=== PATIENT | male | born 1935 | race Caucasian/White ===

== ENCOUNTER → 2017-08-02 | Day surgery (SDC) | payer MEDICARE, OTHER ==
[~2017-08-02] VITALS: Ht 171.4 cm; Wt 79.1 kg
[2017-08-02] VITALS (8 sets, daily range): BP systolic 119–148; BP diastolic 73–79; PULSE 53–69; RESP 14–21; O2SAT 94–100
[~2017-08-02] MED LIST: ASPI-973 PO; ATOR20TA PO; CeFAZolin Inj 2 GM in IV Premix 1 EACH IV ONE; Dexamethasone 4 mg/mL Inj IVPUSH PRN; Dexamethasone 4 mg/mL Inj ONE; EPHEDrine Sulfate 50 mg/mL Inj IVPUSH PRN; HYDROmorphone 1 mg/mL Inj IVPUSH PRN; Ketamine 10 mg/mL 20 mL Inj ONE; Lactated Ringer's 1,000 ML IV SCH; Lactated Ringer's 500 ML IV PRN; MULT-1073 PO; MetoCLOpramide 5 mg/mL 2 mL Inj IVPUSH PRN; Ondansetron 2 mg/mL 2 mL Inj IVPUSH PRN; Ondansetron 2 mg/mL 2 mL Inj ONE; Phenylephrine 10,000 mCg/mL Inj IVPUSH PRN; Propofol 10,000 mCg/mL 20 mL Inj ONE; TIMO5DRO27 OP; fentaNYL-PF 50 mCg/mL 2 mL Inj IVPUSH PRN; fentaNYL-PF 50 mCg/mL 2 mL Inj ONE; milk thistle
[2017-08-02] MEDS: Lactated Ringer's 1,000 ML IV SCH ×2 (06:00→07:40)
--- NOTE | 2017-08-02 07:55 | PCM.HPANE ---
Patient Data Surgeon Admitting Provider: Attending Provider:Bela Silva MD Primary Care Physician:Nadege Daly MD Other Provider:[facility] Reason for Visit Gross Hematuria Ht/WT & BMI Height (Feet): 5 Height (Inches): 7.50 Weight (Kilograms): 79.100 Body Mass Index 27.00 Allergies Coded Allergies: No Known Allergies (Unverified , 07/31/17) Past Anesthesia History Anesthesia History: Denies:: Abnormal Airway, Anesthesia Reactions, Difficult Intubation, Fam Anesthesia Reaction, Fam Malignant Hypertherm, Malignant Hyperthermia Diabetes History Hx Diabetes?: No MRSA MRSA: No Medications Hypertension Medication: No Home Meds Incl Beta Saeid: No Reported Medications Timolol (Betimol)5 Ml Drops5 Ml OP DAILY 07/31/17 [milk thistle] No Conflict CheckUnknown Dose DAILY 07/31/17 Multivits-Min/FA/Lycopene/Lut (Centrum Silver Tablet)1 Each Tablet1 Each PO DAILY 07/31/17 Atorvastatin (Lipitor)20 Mg [id number] Mg PO DAILY Ref 0 07/31/17 Aspirin 81 Mg [id number] Mg PO DAILY Ref 0 07/31/17 History History of ENT Problems?: Yes HEENT History: Positive for:: Cataracts (bilateral surgery) Glaucoma (use timolol, hx of glaucoma surgery) Hearing Problem TMJ (grinds, no nightguard) Denies:: Abnormal Airway Difficult Intubation Dysphagia Sinus Problem Denture Type: None Teeth Condition: Within Normal Limits Hx of Heart Problems?: No Cardiovascular History: Denies:: AICD Abdominal Aortic Aneurism Atrial Fibrillation Cardiac Surgery Coronary Artery Disease Heart Murmur Hypertension Irregular Heartbeat Pacemaker Peripheral Vascular Hx of Respiratory Problem?: Yes Respiratory History: Positive for:: Dyspnea (sob climbing stairs, hx of heavy smoking) Denies:: Asthma COPD Emphysema Oxygen Administration Pneumonia Tuberculosis Use of C-PAP Machine Use of Inhalers / NEBS Hx Neurologic Problems?: No Neurological History: Denies:: CVA Headaches Multiple Sclerosis Parkinson's Disease Seizures Hx of GI Problems?: Yes Hx of Problems?: Yes Genitourinary History: Denies:: Kidney Stones Urinary Tract Infection Other Pertinent History: gross hematuria, bladder tumor current admission problem Male Hx: Positive for:: Prostate Problems (prior hx of brachytherapy for prostate ca) Testicular Surgery (vasectomy) Denies:: Scrotal Mass Skin History: Positive for:: History Skin Disorders? (? red spots on legs- sees dermatology for) Denies:: Pressure Ulcers Hx Musculoskeletal Problems?: No Musculoskeletal History: Positive for:: Back Injury (chronic low back- sees chiropractor) Denies:: Degenerative Joint Fibromyalgia Joint Replacement Musculoskeletal Trauma Myasthenia Gravis Osteoarthritis Rheumatoid Arthritis Systemic Lupus Hx of Psycho/Social Problems?: No Psycho Social History: Denies:: Anxiety Hx Depression Hx Surgeries?: Yes (krystian cataracts, left ing hernia, ) Hx Any Other Health Problems?: Yes Other History: Positive for:: Cancer (prostate, bladder current admission problem) Denies:: Thyroid Disease History Blood Transfusions: Positive for:: Accept Blood Products? Denies:: Blood Transfusions Hx Diabetes: No Hx Alcohol Use: YesAlcoholic Drinks Per Day: 3 glasses wine dailyHx Substance Use: NoHave You Smoked inLast 12 mo: No Stop/Bang Treated for Sleep Apnea?: No Do You Have a CPAP Machine?: No S-Snoring: Do You Snore Loudly: No T-Tired: feel tired, fatigued: No O-Obsered: Observed not breath: No P-Blood Pressure: treated: No B- Body Mass Index > 35 kg/m2: No A- Age over 50: Yes N- Neck Large Circumference: No G- Gender Male: Yes ROMELIA Total Score: 2 ROMELIA Risk Assessment: Low Risk, <3 Yes Risk Assessment Category Category 1A: Patient has history of documented sleep apnea, and HAS NOT received any narcotic, sedative or anesthesia administration during this stay. Category 1B: Patient has history of documented sleep apnea, and HAS received any narcotic , sedative or anesthesia administration during this stay Category 2: Patient has SUSPECTED Obstructive Sleep Apnea, and HAS received any narcotic , sedative or anesthesia administration during this stay. Category 3: Patient has SUSPECTED Obstructive Sleep Apnea and HAS NOT received narcotic, sedative or anesthesia administration during this stay. Category 4: Outpatient in Procedural Areas with known sleep apnea or who screen positive for High Risk via the STOP/BANG questionnaire. Exam Exam Vital Signs Vital Signs Date Time Temp Pulse Resp B/P Pulse Ox O2 Delivery O2 Flow Rate FiO2 08/02/17 06:22 36.2 57 14 130/73 99 Room Air General Appearance: Alert, Oriented X3, Cooperative, No Acute Distress HEENT/AIRWAY: MP 2 Lungs: Clear to Auscultation, Normal Air Movement Heart: Exam Unremarkable, Regular Rate/Rhythm, No Murmurs/Rubs/Gallops Meds/Labs/Diagnostics Admission Meds Current Medications Lactated Ringer's (Lr) 1,000 ml @ 120 mls/hr [id number] IV Last administered on t 06:00; Start 08/02/17 at 05:00; Stop 08/02/17 at 13:19 Plan Impression Patient chart reviewed, patient interviewed and anesthestic plan with risks, benefits, and alternatives discussed, and informed consent obtained. ASA Physical Status: ASA2 Mod Systemic Disease Anesthetic Plan: GA Bene/Risks/Altern/Consents: Yes HP Complete Prior to Induction: Yes Phillip Cintron MD Aug 02, 2017 07:55
[2017-08-02] MEDS: HYDROcodone-APAP 5-325 mg Tablet PO PRN ×2 (10:10→11:15)
--- NOTE | 2017-08-02 11:50 | PCM.ANEP1 ---
Post Anesthesia PACU Phase 1 Assessment Vital Signs Vital Signs Date Time Temp Pulse Resp B/P Pulse Ox O2 Delivery O2 Flow Rate FiO2 08/02/17 10:01 53 18 130/75 98 Room Air 08/02/17 09:21 59 18 119/76 94 Room Air 08/02/17 09:15 36.3 55 18 125/74 94 Room Air 08/02/17 09:10 58 19 129/76 95 Room Air 08/02/17 09:05 60 20 129/79 99 Room Air 08/02/17 09:00 61 19 148/76 100 Simple Mask 8 08/02/17 08:56 36.5 69 21 135/73 100 Simple Mask 8 08/02/17 06:22 36.2 57 14 130/73 99 Room Air Anesthetic Administered: GA Level of Alertness: Awake, talking DUNBAR's with Equal Strength: Yes Pain: No Nausea or Vomiting: No CV Function & Hydration Stable: Yes Airway Device: Oxygen Delivery: Simple Mask Lungs: Clear to Auscultation, Normal Air Movement Dermatome Level: Full Sensation PACU Phase 2 Assessment Complications: No Follow up Care: No Patient Instructions Provided: N/A Phillip Cintron MD Aug 02, 2017 11:50
--- NOTE | 2017-08-02 18:10 | OP ---
[address] [address] OPERATIVE REPORT PATIENT: ZAIDA HARMON : 1935 MR#: [id number] ADMIT: 08/02/2017 JOB ID: [id number] DATE OF SURGERY: 08/02/2017 SURGEON: Bela Silva MD INDIGO MIXER: None. PREOPERATIVE DIAGNOSIS(ES): Bladder tumor. POSTOPERATIVE DIAGNOSIS(ES): 1. Bladder tumor. 2. Small bladder stones. PROCEDURE PERFORMED: 1. Digital rectal exam under anesthesia. 2. Cystoscopy and clot evacuation. 3. Transurethral resection of bladder tumor (over 5 cm) 4. Cystolitholapaxy. FINDINGS: 1. Normal rectal exam without unusual masses. The bladder was mobile. 2. 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 3. Hyperemic bladder. 4. Papillary tumor was carpeting the right bladder base in a low-lying fashion. The bulk of the large part of the tumor was over the left lateral aspect. ANESTHESIA: General. ESTIMATED BLOOD LOSS: Less than 10 mL. DRAIN: An 18-Albanian Katz catheter to the bladder. SPECIMENS: Bladder tumor. COMPLICATIONS: None. CONDITION: Stable. INDICATIONS FOR PROCEDURE: The patient is an 82-year-old gentleman who presented with gross hematuria. He was evaluated in clinic with cystoscopy. Visualization was poor. There was however seen tumor in the bladder and it was not apparent if this was involving the prostatic urethra. He was therefore consented for transurethral resection of bladder tumor as well as transurethral resection of prostate. DESCRIPTION OF PROCEDURE: After informed consent was obtained, the patient was taken to the operating room. A time-out was performed identifying correct patient, surgical site, procedure. General anesthesia was smoothly induced. He was placed in lithotomy position. All pressure points were identified and appropriately padded. He was placed in the lithotomy position and all pressure points were identified and appropriately padded. A rectal exam was performed. The findings were aforementioned. There were no abnormalities on rectal exam. His genitals were then prepped and draped in usual sterile fashion. A 26-Albanian resectoscope was applied to patient's urethra under direct vision and advanced into the bladder. The bladder was drained. There was seen clot in the bladder, approximately 40-50 cc. An Ellik was used to perform a clot evacuation and this resulted in improved visualization though there was active bleeding from the tumors. After multiple irrigations and drainage of the fluid, the bladder was systematically inspected with 30 and 70 degree lenses. The right ureteral orifice was readily identified. The bladder was quite trabeculated with +4 trabeculation and cellules. The left ureteral orifice was not apparent until later during the resection as it was involved with a bladder tumor. The resection commenced from the right base with the low-lying carpeted tumor proceeding to the left side. The patient had particularly strong obturator responses. The resection commenced quite gingerly in this area in the left lateral aspect. Eventually, the left ureteral orifice was identified but there was papillary tumor emanating from it. It was resected back using the cut current only down to the level of the muscle of the bladder. It was resected no further but there was seen papillary tumor that continued to be apparent at the orifice. The bladder was evacuated multiple times during the procedure and hemostasis appeared to be excellent. Tumor samples were collected and sent to Pathology for permanent section. It should be noted that the prostatic urethra was carefully inspected. It was pale in consistent with his history of radiation treatment and it was somewhat fixed during the cystoscopy. It was not terribly rigid however. There did not appear to be bladder tumor involving it. It was therefore recognized that the tumor was ball-valving into the prostatic urethra during the in-clinic cystoscopy. The instruments were then subsequently removed from the patient. An 18-Albanian coude catheter was applied to the patient's bladder and set to dependent drainage. The output was totally clear at the end of the procedure. Ten cc of sterile water were used to inflate the balloon. Patient appeared to tolerate the procedure well without apparent complications. PENNY
== END | disposition home or self-care (01) ==
LOC: SAS 05:49
PROVIDERS: ATTEND Urology
DX: C67.5 Malignant neoplasm of bladder neck (principal); N21.0 Calculus in bladder; R31.0 Gross hematuria; R06.00 Dyspnea, unspecified; M54.5 Low back pain; Z79.82 Long term (current) use of aspirin; Z87.891 Personal history of nicotine dependence; Z85.46 Personal history of malignant neoplasm of prostate
CPT/HCPCS: 45990; 52240; 52318; J0690; J1100; J2405; J2704; J3010; J7120